=== PATIENT | female | born 1985 | race Caucasian/White ===

== ENCOUNTER 2017-02-10 20:23 | Emergency (ER) | payer OTHER ==
[~2017-02-10] VITALS: Ht 170.2 cm; Wt 90.6 kg
[2017-02-10 21:18] LABS: BLOOD UREA NITROGEN 13 mg/dL (7-18)
[2017-02-10 21:24] LABS: ASPARTATE AMINO TRANSFERASE 56 U/L (15-37)
[2017-02-10 22:37] VITALS: BP 112/61
== END 2017-02-11 00:53 | disposition home or self-care (01) ==
LOC: ED 21:43
DX: R10.2 Pelvic and perineal pain (principal); Z90.49 Acquired absence of other specified parts of digestive tract
CPT/HCPCS: 36415; 76830; 80053; 81001; 84703; 85025; 87086; 99285